=== PATIENT | female | born 1970 | race African-American/Black ===

== ENCOUNTER 2018-11-26 13:31 | Observation (INO) ==
[2018-11-26] MEDS ORDERED: ONDANSETRON 4 MG/2 ML VIAL IV ONE (14:36)
[2018-11-26] MEDS ORDERED: HYDROmorphone 2 MG/1 ML VIAL IV STA (14:36)
[2018-11-26 16:38] LABS: Apearance,Urine CLEAR (Clear); Bilirubin,Urine Negative (Negative); Blood, Urine Small mg/dL (Negative); Glucose,Urine (UA) >=500 mg/dL (Negative); Ketones,Urine Negative (Negative); Mucus,Urine Occasional /LPF (Occasional); Nitrite,Urine Negative (Negative); Protein,Urine Negative; RBC,Urine 2 /HPF (0-4); Squamous Epithelial Cell,Urine Occasional /HPF (0-10); Urine Color Straw (Yellow); Urine Specific Gravity 1.054 (1.001-1.035); Urine Urobilinogen < 2.0 EU/DL (0.2-1.0)
[2018-11-26 17:22] LABS: Basophils % 0.3 % (0.0-0.8); Eosinophils % 0.3 % (0.00-10.9); Hematocrit 39.4 VOL% (35.7-47.0); Hemoglobin 12.7 GM/DL (12.0-16.0); Immature Granulocytes % 0.4 %; Immature Granulocytes Absolute 0.04 #; Lymphocytes % 19.2 % (21.3-54.2); Mean Corpuscular HGB Conc 32.2 GM/DL (32-36); Mean Corpuscular Volume 94.3 FL (87-102); Mean Platelet Volume 9.4 FL (9.6-12.0); Monocytes % 4.8 % (1.7-12.7); Platelet Count 298 T/CUMM (130-400); Red Blood Count 4.18 MC/CUMM (3.8-5.5); Red Cell Distribution Width 13.3 % (9.3-17.3); White Blood Count 10.4 T/CUMM (4-12)
[2018-11-26 17:31] LABS: Bilirubin,Total 0.4 MG/DL (0.2-1.0); Calcium 9.2 MG/DL (8.5-10.1); Osmolality,Calculated 283.4 MOS/KG (273-304); Total Protein 7.6 G/DL (6.4-8.3)
[2018-11-26] MEDS ORDERED: ONDANSETRON 4 MG/2 ML VIAL IV PRN (18:45)
[2018-11-26] MEDS ORDERED: HYDROmorphone 2 MG/1 ML VIAL IV PRN (18:45)
[2018-11-26] MEDS ORDERED: ACETAMINOPHEN 325 MG TABLET PO PRN (18:45)
[2018-11-26] MEDS: CYCLOBENZAPRINE 10 MG TABLET PO SCH (19:36)
[2018-11-27] MEDS: CYCLOBENZAPRINE 10 MG TABLET PO SCH ×3 (03:25→19:08)
[2018-11-27] MEDS ORDERED: DEXTROSE 50% 25 GM/50 ML VIAL IV PRN (08:29)
[2018-11-27] MEDS ORDERED: GLUCAGON 1 MG VIAL IM PRN (08:29)
[2018-11-27] MEDS: LOSARTAN/HCTZ 50-12.5 MG TABLET PO SCH (12:59)
[2018-11-27] MEDS: INSULIN LISPRO 100 UNIT/ML SUBCUT SCH ×2 (13:05→16:45)
[2018-11-27] MEDS ORDERED: MELATONIN 3 MG TABLET PO SCH (21:00)
[2018-11-27] MEDS ORDERED: diphenhydrAMINE CAP 50 MG CAPSULE PO SCH (21:00)
[2018-11-28] MEDS: CYCLOBENZAPRINE 10 MG TABLET PO SCH (02:41)
[2018-11-28] MEDS: INSULIN LISPRO 100 UNIT/ML SUBCUT SCH (07:09)
[2018-11-28 07:27] VITALS: BP 105/67
[2018-11-28 08:09] LABS: Basophils % 0.5 % (0.0-0.8); Eosinophils # 0.1 10*3/uL (0.0-0.87); Eosinophils % 2.3 % (0.00-10.9); Hemoglobin 13.1 GM/DL (12.0-16.0); Immature Granulocytes % 0.4 %; Immature Granulocytes Absolute 0.02 #; Lymphocytes % 36.2 % (21.3-54.2); Mean Corpuscular Volume 95.1 FL (87-102); Monocytes % 5.5 % (1.7-12.7); Neutrophils % 55.1 % (38.7-73.9); Platelet Count 220 T/CUMM (130-400); Red Blood Count 4.31 MC/CUMM (3.8-5.5); Red Cell Distribution Width 13.4 % (9.3-17.3); White Blood Count 5.6 T/CUMM (4-12)
[2018-11-28 08:15] LABS: Osmolality,Calculated 283.1 MOS/KG (273-304)
[2018-11-28] MEDS: LOSARTAN/HCTZ 50-12.5 MG TABLET PO SCH (08:18)
[2018-11-28] MEDS ORDERED: POLYETHYLENE GLYCOL POWDER 17 GM PACK PO SCH (09:00)
== END 2018-11-28 10:46 | disposition home or self-care (01) ==
LOC: EDUNIT# → EDBD → N.EDINP 13:31 → N.ED 13:31 → N.3E 17:31
PROVIDERS: ADMIT Student in an Organized Health Care Education/Training Program; ATTEND Student in an Organized Health Care Education/Training Program